=== PATIENT | female | born 1965 | race Caucasian/White ===

== ENCOUNTER 2016-12-31 14:58 | Outpatient (RCR) | payer OTHER | END 2017-03-31 | LOC: WSOH | DX: S00.33XA Contusion of nose, initial encounter (principal); S02.2XXA Fracture of nasal bones, initial encounter for closed fracture; W22.09XA Striking against other stationary object, initial encounter; Y99.0 Civilian activity done for income or pay ==

== ENCOUNTER → 2016-12-31 | Outpatient (REF) | LOC: WSOH 15:01 | DX: Z01.89 Encounter for other specified special examinations (principal) ==

== ENCOUNTER → 2017-03-18 | Outpatient (REF) | LOC: WSOH 17:45 | DX: Z02.89 Encounter for other administrative examinations (principal) ==

== ENCOUNTER 2017-05-04 13:12 | Emergency (ER) | payer BC ==
[~2017-05-04] VITALS: Ht 162.6 cm; Wt 63.6 kg
[2017-05-04 13:15] VITALS: TEMP 97.8
[2017-05-04] MEDS ORDERED: EVOXAC30 MG PO (13:38)
[2017-05-04] MEDS ORDERED: PLAQUENIL 200M200 MG PO (13:38)
[2017-05-04] MEDS ORDERED: MULTI VITAMINS1 TAB PO (13:38)
[2017-05-04] MEDS ORDERED: CYMBALTA 60MG60 MG PO (13:39)
[2017-05-04] MEDS ORDERED: FLEXERIL5 MG PO (13:39)
[2017-05-04 14:55] VITALS: BP 122/68; PULSE 90
== END 2017-05-04 14:56 | disposition home or self-care (01) ==
LOC: COL.ER 13:12
DX: G43.909 Migraine, unspecified, not intractable, without status migrainosus (principal); M32.9 Systemic lupus erythematosus, unspecified
CPT/HCPCS: J1200; J1885

== ENCOUNTER 2017-07-06 14:09 | Emergency (ER) | payer OTHER ==
[~2017-07-06] VITALS: Ht 165.1 cm; Wt 65.0 kg
[~2017-07-06 14:09] MED LIST: CYMBALTA 60MG60 MG PO; EVOXAC30 MG PO; FLEXERIL5 MG PO; MULTI VITAMINS1 TAB PO; PLAQUENIL 200M200 MG PO
[2017-07-06 14:12] VITALS: BP 115/58; TEMP 98.3
[2017-07-06] MEDS ORDERED: COREG 3.123.125 MG/T PO (14:16)
[2017-07-06 16:31] VITALS: PULSE 72
== END 2017-07-06 16:32 | disposition home or self-care (01) ==
LOC: COL.ER 14:09
DX: G43.909 Migraine, unspecified, not intractable, without status migrainosus (principal)
CPT/HCPCS: J1100; J1200; J1885; J2405; J2550; J7030

== ENCOUNTER 2017-08-20 13:34 | Emergency (ER) | payer OTHER ==
[~2017-08-20] VITALS: Ht 162.6 cm; Wt 64.5 kg
[~2017-08-20 13:34] MED LIST changes: +COREG 3.123.125 MG/T PO
[2017-08-20 13:38] VITALS: BP 115/72; TEMP 98.6
[2017-08-20] MEDS ORDERED: NORCO 325 MG-7.1 TAB (13:41)
[2017-08-20] MEDS ORDERED: BYSTOLIC2.5 MG PO (13:41)
[2017-08-20] MEDS ORDERED: TORADOL 10MG TA10 MG PO (13:42)
[2017-08-20 18:41] VITALS: PULSE 74
== END 2017-08-20 18:42 | disposition home or self-care (01) ==
LOC: COL.ER 13:34
DX: G43.909 Migraine, unspecified, not intractable, without status migrainosus (principal); I10 Essential (primary) hypertension; Z87.39 Personal history of other diseases of the musculoskeletal system and connective tissue
CPT/HCPCS: J1200; J1885; J2550; J2765; J7030